=== PATIENT | female | born 1995 | race Two or more races ===

== ENCOUNTER 2018-07-22 20:17 | Emergency (ER) | payer OTHER ==
[2018-07-22] MEDS ORDERED: NS 1,000 ML IV ONE ×2 (20:37→21:55)
--- NOTE | 2018-07-22 21:07 | EDPHY ---
H & P Stated Complaint: Nausea, vomiting, epigastric pain over 24 hours Time Seen by Provider: 07/22/18 21:21 HPI/ROS: CHIEF COMPLAINT: Abdominal pain and vomiting HISTORY OF PRESENT ILLNESS: Previously healthy 22 yo female with onset of precipitous nausea followed by vomiting at approximately 10:00 p.m. Interest sling, she was about to repair her evening meal as she was hungry when all the sudden she became ill, last night. Along with that there is a sense of mild abdominal distress in the upper abdomen. Essentially that has been consistent and ongoing ever since it started at 10 last night. There are episodes where she had the sense of saliva in the back of her throat as if she was going to vomit but she was able to state that off until the daylight hours when she became wildly vomiting again. Further, when she went out with the dog last this morning she again became violently ill. At no point has there been any blood or yellow to suggest bile. No one else is sick. No known exposure. P: Not worse with vomiting or bending over Q: Achiness R: Bilateral upper quadrants S: Mild T: Since 10 last night There has been no diarrhea No travel outside the country for 18 months No tainted foods No others ill She does not believe she is as she is not sexually active ever. She declines testing REVIEW OF SYSTEMS: Constitutional: No fever, no chills. HEENT there has been no earache or sore throat Cardiovascular: No chest pain, no palpitations. Respiratory: No cough, shortness of breath, or wheezing. Gastrointestinal: See above Genitourinary: No hematuria or frequency. Musculoskeletal: No back pain. Skin: No rashes. Neurological: No headache. A 10 system review of systems was performed and is negative except for the noted findings in the HPI. Source: Patient - Personal History LMP (Females 10-55): 1-7 Days Ago Current Tetanus/Diphtheria Vaccine: Unsure Current Tetanus Diphtheria and Acellular Pertussis (TDAP): Unsure - Medical/Surgical History Hx Asthma: No Hx Chronic Respiratory Disease: No Hx Diabetes: No Hx Cardiac Disease: No Hx Renal Disease: No Hx Cirrhosis: No Hx Alcoholism: No Hx HIV/AIDS: No Hx Splenectomy or Spleen Trauma: No Other PMH: Anxiety issues-has therapy dog. - Social History Smoking Status: Never smoked Alcohol Use: None Drug Use: None - Physical Exam Exam: General Appearance: Alert, no distress. Afebrile. Normal phonation. No respiratory distress. She arrived anxious and was talked down and able to control her anxiety by the nurse Eyes: Pupils equal and round no pallor or injection. No icterus ENT, Mouth: Mucous membranes moderately dry Pharynx without erythema or exudate. TM Clear. Neck: No adenopathy. Supple. No JVD. Trachea in midline. Respiratory: There are no retractions, lungs are clear to auscultation. Cardiovascular: Regular rate and rhythm. Abdomen: The abdomen is soft. There is no tenderness over the site where she has painful at the subxiphoid region. There is negative June sign. There is no rebound or guarding. Neurological: Ox3. No motor weakness. Sensation intact. Gait nl. Skin: Warm and dry, no rashes. Musculoskeletal: No joint swelling. Extremities: No edema. Homans sign negative. No cords. Psychiatric: Normal affect. Patient is oriented X 3. There is no agitation Constitutional: Initial Vital Signs Temperature (C) 36.8 C 07/22/18 20:38 Heart Rate 83 07/22/18 20:38 Respiratory Rate 20 07/22/18 20:38 Blood Pressure 108/78 07/22/18 20:38 O2 Sat (%) 98 07/22/18 20:38 O2 Delivery Mode Room Air Allergies/Adverse Reactions: No Known Allergies Allergy (Unverified 07/22/18 20:43) Home Medications: Medication Instructions Recorded NK [No Known Home Meds] 07/22/18 Medical Decision Making ED Course/Re-evaluation: An IV was established she was hydrated for volume depletion. She is also given Zofran 4 mg IV for nausea She had persistent dry heaves despite 4 mg of Zofran thus was repeated. Abdominal exam continued to be benign without any focal tenderness. We had a lengthy discussion regarding her need to return tomorrow that approximately noon if she is not completely resolved. Sooner if getting worse Differential Diagnosis: Differential diagnosis includes, but is not limited to: Gastroenteritis, dehydration, hepatitis, pancreatitis, renal colic, kidney stones, ureterolithiasis, cholecystitis, appendicitis, gastritis, food poisoning , bacterial dysentery. - Data Points Laboratory Results: Laboratory Results 07/22/18 20:30 07/22/18 07/22/18 07/22/18 20:56 20:30 20:30 WBC 9.64 10^3/uL H 10^3/uL (3.80-9.50) RBC 4.81 10^6/uL 10^6/uL (4.18-5.33) Hgb 12.9 g/dL g/dL (12.6-16.3) Hct 39.3 % % (38.0-47.0) MCV 81.7 fL fL (81.5-99.8) MCH 26.8 pg L pg (27.9-34.1) MCHC 32.8 g/dL g/dL (32.4-36.7) RDW 13.8 % % (11.5-15.2) Plt Count 306 10^3/uL 10^3/uL (150-400) MPV 9.6 fL fL (8.7-11.7) Neut % (Auto) 61.9 % % (39.3-74.2) Lymph % (Auto) 27.7 % % (15.0-45.0) [place] % (Auto) 8.5 % % (4.5-13.0) Eos % (Auto) 1.3 % % (0.6-7.6) Baso % (Auto) 0.2 % L % (0.3-1.7) Nucleat RBC Rel Count 0.0 % % (0.0-0.2) Absolute Neuts (auto) 5.96 10^3/uL 10^3/uL (1.70-6.50) Absolute Lymphs (auto) 2.67 10^3/uL 10^3/uL (1.00-3.00) Absolute Monos (auto) 0.82 10^3/uL H 10^3/uL (0.30-0.80) Absolute Eos (auto) 0.13 10^3/uL 10^3/uL (0.03-0.40) Absolute Basos (auto) 0.02 10^3/uL 10^3/uL (0.02-0.10) Absolute Nucleated RBC 0.00 10^3/uL 10^3/uL (0-0.01) Immature Gran % 0.4 % % (0.0-1.1) Immature Gran # 0.04 10^3/uL 10^3/uL (0.00-0.10) POC Sodium 137 mEq/L mEq/L (135-145) POC Potassium 3.3 mEq/L mEq/L (3.3-5.0) POC Chloride 109.0 mEq/L mEq/L (97-110) POC Total CO2 20 mEq/L L mEq/L (22-31) POC BUN 10 mg/dL mg/dL (7-23) POC Creatinine 0.7 mg/dL mg/dL (0.6-1.0) POC Glucose 130 mg/dL H mg/dL (70-100) POC Calcium 8.7 mg/dL mg/dL (8.5-10.4) POC Total Bilirubin 0.5 mg/dL mg/dL (0.1-1.4) POC AST 28 IU/L IU/L (14-46) POC ALT 24 IU/L IU/L (9-52) POC Alk Phosphatase 64 IU/L IU/L (38-126) POC Total Protein 6.7 g/dL g/dL (6.3-8.2) POC Albumin 3.3 g/dL L g/dL (3.5-5.0) Lipase 51 IU/L IU/L (23-300) Medications Given: Discontinued Medications Sodium Chloride (Ns) 1,000 mls @ 0 mls/hr IV EDNOW ONE; Wide Open PRN Reason: Protocol Stop: 07/22/18 20:38 Last Admin: 07/22/18 20:48 Dose: 1,000 mls Sodium Chloride (Ns) 1,000 mls @ 0 mls/hr IV EDNOW ONE; Wide Open PRN Reason: Protocol Stop: 07/22/18 21:56 Last Admin: 07/22/18 22:09 Dose: 1,000 mls Ondansetron HCl (Zofran Odt 4 Mg Prepack#2) 1 btl TAKEHOME EDNOW ONE Stop: 07/22/18 22:04 Last Admin: 07/22/18 22:43 Dose: 1 btl Ondansetron HCl (Zofran) 4 mg IVP ONCE ONE Stop: 07/22/18 22:41 Last Admin: 07/22/18 22:44 Dose: 4 mg Point of Care Test Results: Chemistry 09/02/18 20:56 POC Sodium 137 mEq/L mEq/L (135-145) POC Potassium 3.3 mEq/L mEq/L (3.3-5.0) POC Chloride 109.0 mEq/L mEq/L (97-110) POC Total CO2 20 mEq/L L mEq/L (22-31) POC BUN 10 mg/dL mg/dL (7-23) POC Creatinine 0.7 mg/dL mg/dL (0.6-1.0) POC Glucose 130 mg/dL H mg/dL (70-100) POC Calcium 8.7 mg/dL mg/dL (8.5-10.4) POC Total Bilirubin 0.5 mg/dL mg/dL (0.1-1.4) POC AST 28 IU/L IU/L (14-46) POC ALT 24 IU/L IU/L (9-52) POC Alk Phosphatase 64 IU/L IU/L (38-126) POC Total Protein 6.7 g/dL g/dL (6.3-8.2) POC Albumin 3.3 g/dL L g/dL (3.5-5.0) Departure - Departure Disposition: Home, Routine, Self-Care Clinical Impression: Acute gastroenteritis Condition: Good Instructions: Ondansetron (By mouth), Dehydration (ED), Gastroenteritis (ED) Additional Instructions: Use the Zofran for nausea and vomiting As best she can in the morning start p.o. Fluids. There is no need to take any food per se until later in the afternoon Return by noon tomorrow if your to unable to keep any fluids down, or if the pain continues. The expectation is that you will be markedly better by noon tomorrow, if not then return As you're contagious, did not go to work tomorrow. See the note. Do not prepare food for others. Referrals: NONE *PRIMARY CARE P,. [Primary Care Provider] - As per Instructions Stand Alone Forms: School Excuse, Work Excuse
[2018-07-22] MEDS ORDERED: ONDANSETRON 4MG PREPACK#2 BTL TAKEHOME ONE (22:03)
[2018-07-22 22:06] LABS: PLATELET COUNT 306 10^3/uL (150-400)
[2018-07-22] MEDS ORDERED: ONDANSETRON 4 MG/2 ML VIAL IVP ONE (22:40)
[2018-07-22 22:49] VITALS: BP 112/84
== END 2018-07-22 23:00 | disposition home or self-care (01) ==
LOC: CED 20:17
DX: K52.9 Noninfective gastroenteritis and colitis, unspecified (principal); E86.9 Volume depletion, unspecified
CPT/HCPCS: 80053-PO; 96374; J2405